=== PATIENT | female | born 1990 ===

== ENCOUNTER 2021-04-07 16:40 | Emergency (ER) | payer SELFPAY ==
[2021-04-07] MEDS ORDERED: ONDANSETRON 4 MG/2 ML INJ IV ONE (17:04)
[2021-04-07] MEDS ORDERED: MORPHINE 2 MG/1 ML INJ IV ONE (17:04)
[2021-04-07] MEDS ORDERED: SODIUM CHLORIDE 0.9% 1000 ML 1,000 ML IV ONE (17:04)
--- NOTE | 2021-04-07 17:07 | Emergency Department Report ---
ED Female HPI - General Stated complaint: MISCARRAGE/DIZZY/PELVIC PAIN Time Seen by Provider: 04/07/21 16:56 Source: patient Mode of arrival: Ambulatory Limitations: No Limitations - History of Present Illness Initial comments: 30-year-old female with no significant a past medical history presents to the hospital complaining of possible miscarriage. LMP February 22 (6 weeks and 2 days today). She has been having intermittent vaginal bleeding for the past 3 days. Bleeding is minimal at the time of complaining of moderate to severe intermittent suprapubic cramping radiating to the rectum. Patient is being followed by the clinic at [place]. She had a recent HCG test and was scheduled for follow-up blood draw and appointment today. She came to the ED because of p ain. She has not had ultrasound during this . She complains of intermittent nausea and vomiting as well. Currently taking vitamins and iron tablets. No previous abdominal surgeries reported. This is her fourth , 2 living children, history of 1 previous miscarriage - Related Data Home Medications Medication Instructions Recorded Confirmed Last Taken No Known Home Medications [No 04/07/21 04/07/21 Unknown Reported Home Medications] Allergies Allergy/AdvReac Type Severity Reaction Status Date / Time No Known Allergies Allergy Unverified 04/07/21 17:03 ED Review of Systems ROS: Stated complaint: MISCARRAGE/DIZZY/PELVIC PAIN Other details as noted in HPI Comment: All other systems reviewed and negative ED Past Medical Hx - Past Medical History Previous Medical History?: No - Medications Home Medications: Home Medications Medication Instructions Recorded Confirmed Last Taken Type No Known Home Medications [No 04/07/21 04/07/21 Unknown History Reported Home Medications] ED Physical Exam - Other Other exam information: General: No acute distress Head: Atraumatic Eyes: normal appearance ENT: Moist mucous membranes Neck: Normal appearance, no midline tenderness Chest: Clear to auscultation bilaterally CV: Regular rate and rhythm Abdomen: Soft, normal bowel sounds, suprapubic tenderness, nondistended, no rebound or guarding Back: Normal inspection Extremity: Normal inspection, full range of motion Neuro: Alert O x 3, no facial asymmetry, speech clear, no gross motor sensory deficit Psych: Appropriate behavior Skin: No rash ED Course Vital Signs 04/07/21 04/07/21 04/07/21 18:53 19:58 20:01 Temperature 99 F Pulse Rate 80 90 Respiratory 15 16 14 Rate Blood Pressure 102/51 Blood Pressure 108/54 [Left] O2 Sat by Pulse 100 100 99 Oximetry 04/07/21 04/07/21 04/07/21 20:31 21:01 21:31 Temperature Pulse Rate 75 91 H 85 Respiratory 19 17 15 Rate Blood Pressure 102/51 106/52 112/48 Blood Pressure [Left] O2 Sat by Pulse 99 92 99 Oximetry - Consultations Consultation #1: 04/07/21 19:[address] Soto MEDIA RELATIONS ASSOCIATE. Suggested patient would need repeat ultrasound and blood work in 48 hours. Recommends that she goes to her clinic and 2 days on the third for the studies. Tylenol only for pain ED Medical Decision Making - Lab Data Result diagrams: 04/07/21 17:06 Lab Results 04/07/21 04/07/21 04/07/21 Range/Units 17:06 17:06 17:06 WBC 10.2 (4.5-11.0) K/mm3 RBC 3.61 L (3.65-5.03) M/mm3 Hgb 9.3 L (10.1-14.3) gm/dl Hct 29.8 L (30.3-42.9) % MCV 83 (79-97) fl MCH 26 L (28-32) pg MCHC 31 (30-34) % RDW 16.1 H (13.2-15.2) % Plt Count 199 (140-440) K/mm3 Lymph % (Auto) 12.3 L (13.4-35.0) % [place] % (Auto) 6.0 (0.0-7.3) % Eos % (Auto) 0.3 (0.0-4.3) % Baso % (Auto) 0.3 (0.0-1.8) % Lymph # (Auto) 1.2 (1.2-5.4) K/mm3 [place] # (Auto) 0.6 (0.0-0.8) K/mm3 Eos # (Auto) 0.0 (0.0-0.4) K/mm3 Baso # (Auto) 0.0 (0.0-0.1) K/mm3 Seg Neutrophils % 81.1 H (40.0-70.0) % Seg Neutrophils # 8.3 H (1.8-7.7) K/mm3 HCG, Quant 2601 H (0-4) mIU/mL Blood Type A POSITIVE Antibody Screen Negative - Radiology Data Radiology results: report reviewed ULTRASOUND PELVIS INDICATION: vag bleeding. TECHNIQUE: Transabdominal. Transvaginal. Duplex Color Doppler used: Yes. COMPARISON: None available FINDINGS: Uterus: Present. Size: 10.3 x 4.8 x 5.8 cm. Endometrial complex: Thickened. measuring 1.2 cm. No intrauterine . Mass lesions: None. Additional findings: None. Right Ovary -- Normal. Blood flow: Normal. Cyst or mass: None. Left Ovary-- Normal. Blood flow: Normal. Cyst or mass: None. Urinary Bladder: Normal. Free Fluid: Moderate complex free fluid. Additional Findings: Possible soft tissue lesion left adnexa. IMPRESSION: 1. Thickened endometrial stripe. No intrauterine . 2. Moderate complex free fluid with possible soft tissue lesion left adnexa. Ectopic cannot be excluded by ultrasound. Recommend correlation with hCG. - Medical Decision Making Differential includes but not limited to ectopic , spontaneous miscarriage, threatened miscarriage, ovarian cyst 30-year-old female presents to the hospital with cramping abdominal pain vaginal bleeding intermittent for the past 3 days. Positive ECG of 2601 without IUP identified. Differential still includes miscarriage versus ectopic. This was discussed with on-call MEDIA RELATIONS ASSOCIATE doctor Dr. Soto who advised outpatient follow-up in 2 days for repeat laboratory testing and ultrasound to rule out ectopic. Patient provided strict instructions to return. Should take Tylenol only as needed for pain Critical Care Time: No Critical care attestation.: If time is entered above; I have spent that time in minutes in the direct care of this critically ill patient, excluding procedure time. ED Disposition Clinical Impression: Vaginal bleeding during Disposition: HOME / SELF CARE / HOMELESS Is pt being admited?: No Does the pt Need Aspirin: No Condition: Stable Instructions: Ectopic , [id number], Miscarriage Additional Instructions: Take the medication as prescribed. Follow-up with your [facility] doctor in 3 days (April 09) for repeat blood testing and ultrasound.. Return if symptoms worsen as indicated by your discharge instructions. Take the copy of the ultrasound and labs provided to your doctor for follow up Morgan el medicamento segn lo recetado. Franky un seguimiento con hardin mdico gineclogo en 3 wagner (3 de noviembre) para repetir los anlisis de angelo y la ecografa. Regrese si los sntomas empeoran segn lo indicado por sj instrucciones de tamir. Morgan la copia del ultrasonido y los laboratorios proporcionados a hardin mdico para el seguimiento Referrals: Jayna, MEDIA RELATIONS ASSOCIATE MD [Other] - 04/09/21 (Follow-up in 3 days April 09) Time of Disposition: 22:27 Print Language: SOMALI
[2021-04-07 17:32] LABS: Basophils % (Auto) 0.3 % (0.0-1.8); Eosinophils % (Auto) 0.3 % (0.0-4.3); Hematocrit 29.8 % (30.3-42.9); Hemoglobin 9.3 gm/dl (10.1-14.3); Lymphocytes # (Auto) 1.2 K/mm3 (1.2-5.4); Lymphocytes % (Auto) 12.3 % (13.4-35.0); Mean Corpuscular HGB Conc 31 % (30-34); Mean Corpuscular Volume 83 fl (79-97); Monocytes # (Auto) 0.6 K/mm3 (0.0-0.8); Platelet Count 199 K/mm3 (140-440); Red Blood Count 3.61 M/mm3 (3.65-5.03); Red Cell Distribution Width 16.1 % (13.2-15.2)
--- NOTE | 2021-04-07 18:53 | Ultrasound Report ---
ULTRASOUND PELVIS INDICATION: vag bleeding. TECHNIQUE: Transabdominal. Transvaginal. Duplex Color Doppler used: Yes. COMPARISON: None available FINDINGS: Uterus: Present. Size: 10.3 x 4.8 x 5.8 cm. Endometrial complex: Thickened. measuring 1.2 cm. No intrauterine . Mass lesions: None. Additional findings: None. Right Ovary -- Normal. Blood flow: Normal. Cyst or mass: None. Left Ovary-- Normal. Blood flow: Normal. Cyst or mass: None. Urinary Bladder: Normal. Free Fluid: Moderate complex free fluid. Additional Findings: Possible soft tissue lesion left adnexa. IMPRESSION: 1. Thickened endometrial stripe. No intrauterine . 2. Moderate complex free fluid with possible soft tissue lesion left adnexa. Ectopic cannot be excluded by ultrasound. Recommend correlation with hCG. Signer Name: Ashutosh Lizarraga MD Signed: 04/07/2021 6:49 PM Workstation Name: [id number]
[2021-04-07] MEDS ORDERED: ACETAMINOPHEN 325 MG TAB PO ONE ×2 (19:53→23:10)
[2021-04-07 21:41] VITALS: BP 112/48
== END 2021-04-07 23:27 | disposition home or self-care (01) ==
LOC: ED 16:40
DX: O20.9 Hemorrhage in early pregnancy, unspecified (principal); O26.891 Other specified pregnancy related conditions, first trimester; R10.9 Unspecified abdominal pain; Z3A.01 Less than 8 weeks gestation of pregnancy
CPT/HCPCS: 36415; 76801; 76817; 84702; 85025; 86850; 86900; 86901; 96361; 96374; 96375; 99284; J2270; J2405; J7030

== ENCOUNTER 2021-04-10 16:04 | Emergency (ER) | payer SELFPAY ==
[2021-04-10 16:27] VITALS: BP 133/50
--- NOTE | 2021-04-10 17:05 | Emergency Department Report ---
ED General Adult HPI - General Chief complaint: Vaginal Bleeding Stated complaint: REFERRAL ECTOPIC Time Seen by Provider: 04/10/21 16:46 Source: patient Mode of arrival: Ambulatory Limitations: No Limitations - History of Present Illness Initial comments: 30-year-old female patient presents with complaints of possible ectopic . Patient was seen here in the ED a few days ago for vaginal bleeding in . She states she has had mild cramping. At that visit, patient was found to have possible miscarriage versus ectopic on ultrasound with a left adnexal complex fluid. Patient followed up with her [facility] today and was referred here to the ED to rule out ectopic again. She states she continues to have mild vaginal spotting bleeding and mild cramping, but no pain at current. She is G4, no other prior medical history per patient. Severity scale (0 -10): 0 - Related Data Home Medications Medication Instructions Recorded Confirmed Last Taken No Known Home Medications [No 04/07/21 04/07/21 Unknown Reported Home Medications] Allergies Allergy/AdvReac Type Severity Reaction Status Date / Time No Known Allergies Allergy Unverified 04/07/21 17:03 ED Review of Systems ROS: Stated complaint: REFERRAL ECTOPIC Other details as noted in HPI Constitutional: denies: chills, fever, malaise ENT: denies: throat pain Respiratory: denies: cough, shortness of breath Cardiovascular: denies: chest pain Gastrointestinal: as per HPI. denies: nausea, vomiting Musculoskeletal: denies: back pain, joint swelling Hematological/Lymphatic: denies: easy bleeding ED Past Medical Hx - Past Medical History Additional medical history: denies - Surgical History Additional Surgical History: denies - Social History Smoking Status: Never Smoker Substance Use Type: None - Medications Home Medications: Home Medications Medication Instructions Recorded Confirmed Last Taken Type No Known Home Medications [No 04/07/21 04/07/21 Unknown History Reported Home Medications] ED Physical Exam - General Limitations: No Limitations General appearance: alert, in no apparent distress - Head Head exam: Present: atraumatic, normocephalic - Eye Eye exam: Present: normal appearance. Absent: scleral icterus - Respiratory Respiratory exam: Present: normal lung sounds bilaterally. Absent: respiratory distress - Cardiovascular Cardiovascular Exam: Present: regular rate, normal rhythm - GI/Abdominal GI/Abdominal exam: Present: soft, normal bowel sounds. Absent: distended, tenderness, guarding, rebound, rigid - Neurological Exam Neurological exam: Present: alert, oriented X3, normal gait - Psychiatric Psychiatric exam: Present: normal affect, normal mood - Skin Skin exam: Present: warm, dry, intact, normal color. Absent: rash ED Course Vital Signs 04/10/21 04/10/21 16:24 20:11 Temperature 98 F Pulse Rate 83 Respiratory 18 Rate Blood Pressure 133/50 [Right] O2 Sat by Pulse 100 98 Oximetry ED Medical Decision Making - Lab Data Result diagrams: 04/10/21 16:33 04/10/21 16:33 Lab Results 04/10/21 04/10/21 04/10/21 Range/Units 16:33 16:33 16:33 WBC 5.7 (4.5-11.0) K/mm3 RBC 3.17 L (3.65-5.03) M/mm3 Hgb 8.2 L (10.1-14.3) gm/dl Hct 25.5 L (30.3-42.9) % MCV 81 (79-97) fl MCH 26 L (28-32) pg MCHC 32 (30-34) % RDW 16.0 H (13.2-15.2) % Plt Count 187 (140-440) K/mm3 Lymph % (Auto) 25.7 (13.4-35.0) % [place] % (Auto) 7.8 H (0.0-7.3) % Eos % (Auto) 1.0 (0.0-4.3) % Baso % (Auto) 0.5 (0.0-1.8) % Lymph # (Auto) 1.5 (1.2-5.4) K/mm3 [place] # (Auto) 0.4 (0.0-0.8) K/mm3 Eos # (Auto) 0.1 (0.0-0.4) K/mm3 Baso # (Auto) 0.0 (0.0-0.1) K/mm3 Seg Neutrophils % 65.0 (40.0-70.0) % Seg Neutrophils # 3.7 (1.8-7.7) K/mm3 Sodium 142 (137-145) mmol/L Potassium 3.7 (3.6-5.0) mmol/L Chloride 104.7 (98-107) mmol/L Carbon Dioxide 25 (22-30) mmol/L Anion Gap 16 mmol/L BUN 8 (7-17) mg/dL Creatinine 0.4 L (0.6-1.2) mg/dL Estimated GFR > 60 ml/min BUN/Creatinine Ratio 20 % Glucose 109 H (65-100) mg/dL Calcium 9.1 (8.4-10.2) mg/dL Total Bilirubin 0.30 (0.1-1.2) mg/dL AST 13 (5-40) units/L ALT 6 L (7-56) units/L Alkaline Phosphatase 47 (35-129) units/L Total Protein 7.5 (6.3-8.2) g/dL Albumin 4.3 (3.9-5) g/dL Albumin/Globulin Ratio 1.3 % HCG, Quant 452.9 H (0-4) mIU/mL Urine Color (Yellow) Urine Turbidity (Clear) Urine pH (5.0-7.0) Ur Specific [place] (1.003-1.030) Urine Protein (Negative) mg/dL Urine Glucose (UA) (Negative) mg/dL Urine Ketones (Negative) mg/dL Urine Blood (Negative) Urine Nitrite (Negative) Urine Bilirubin (Negative) Urine Urobilinogen (<2.0) mg/dL Ur Leukocyte Esterase (Negative) Urine WBC (Auto) (0.0-6.0) /HPF Urine RBC (Auto) (0.0-6.0) /HPF U Epithel Cells (Auto) (0-13.0) /HPF Urine Mucus /HPF 04/10/21 Range/Units 17:10 WBC (4.5-11.0) K/mm3 RBC (3.65-5.03) M/mm3 Hgb (10.1-14.3) gm/dl Hct (30.3-42.9) % MCV (79-97) fl MCH (28-32) pg MCHC (30-34) % RDW (13.2-15.2) % Plt Count (140-440) K/mm3 Lymph % (Auto) (13.4-35.0) % [place] % (Auto) (0.0-7.3) % Eos % (Auto) (0.0-4.3) % Baso % (Auto) (0.0-1.8) % Lymph # (Auto) (1.2-5.4) K/mm3 [place] # (Auto) (0.0-0.8) K/mm3 Eos # (Auto) (0.0-0.4) K/mm3 Baso # (Auto) (0.0-0.1) K/mm3 Seg Neutrophils % (40.0-70.0) % Seg Neutrophils # (1.8-7.7) K/mm3 Sodium (137-145) mmol/L Potassium (3.6-5.0) mmol/L Chloride (98-107) mmol/L Carbon Dioxide (22-30) mmol/L Anion Gap mmol/L BUN (7-17) mg/dL Creatinine (0.6-1.2) mg/dL Estimated GFR ml/min BUN/Creatinine Ratio % Glucose (65-100) mg/dL Calcium (8.4-10.2) mg/dL Total Bilirubin (0.1-1.2) mg/dL AST (5-40) units/L ALT (7-56) units/L Alkaline Phosphatase (35-129) units/L Total Protein (6.3-8.2) g/dL Albumin (3.9-5) g/dL Albumin/Globulin Ratio % HCG, Quant (0-4) mIU/mL Urine Color Yellow (Yellow) Urine Turbidity Clear (Clear) Urine pH 6.0 (5.0-7.0) Ur Specific [place] 1.016 (1.003-1.030) Urine Protein <15 mg/dl (Negative) mg/dL Urine Glucose (UA) Neg (Negative) mg/dL Urine Ketones Neg (Negative) mg/dL Urine Blood Lg (Negative) Urine Nitrite Neg (Negative) Urine Bilirubin Neg (Negative) Urine Urobilinogen < 2.0 (<2.0) mg/dL Ur Leukocyte Esterase Neg (Negative) Urine WBC (Auto) 3.0 (0.0-6.0) /HPF Urine RBC (Auto) 1.0 (0.0-6.0) /HPF U Epithel Cells (Auto) 2.0 (0-13.0) /HPF Urine Mucus Few /HPF - Radiology Data Radiology results: report reviewed ULTRASOUND OBSTETRIC INDICATION / CLINICAL INFORMATION: possible ectopic. Clinical Gestational Age (GA) in weeks, days: 11, 1 TECHNIQUE: Transvaginal. COMPARISON: 04/07/2021 FINDINGS: GESTATIONAL SAC: Not seen YOLK SAC: Not seen EMBRYO/FETUS: Not seen ADNEXA: Within the left adnexa there is an echogenic area with central area of decreased echogenicity and what appears to be a yolk sac. This is highly suspicious for ectopic . FREE FLUID: There is small amount of echogenic free fluid within the pelvis. This does not appear significant change compared to 2 days prior. ADDITIONAL FINDINGS: None. IMPRESSION: 1. Findings very concerning for left adnexal ectopic . No evidence of intrauterine gestation. - Medical Decision Making 30-year-old female patient presents with complaints of possible ectopic . Patient was seen here in the ED a few days ago for vaginal bleeding in . She states she has had mild cramping. At that visit, patient was found to have possible miscarriage versus ectopic on ultrasound with a left adnexal complex fluid. Patient followed up with her [facility] today and was referred here to the ED to rule out ectopic again. She states she continues to have mild vaginal spotting bleeding and mild cramping, but no pain at current. She is G4, no other prior medical history per patient. Ultrasound shows likely left ectopic . Ultrasound results and labs reviewed with Dr. Gunter, GM V[facility]. Dr. Gunter recommends methotrexate IM. Patient to return to the ED on Wednesday for repeat beta hCG levels. She is to have a second repeat of her hCG levels on 04/16/2021 with her [facility] or with the CD. Dr. Gunter states that the beta-hCG amount measured on 04/16/2021 should decrease by 15% from the measurement on 04/13/2021. Discussed findings in detail with patient, plan of care, and signs and symptoms that should prompt immediate return to the ED. Patient verbalized understanding. She is well-appearing and denies any pain at this time. Patient is stable for discharge home. Patient also instructed to discontinue vitamins per instructions by Dr. Gunter Critical care attestation.: If time is entered above; I have spent that time in minutes in the direct care of this critically ill patient, excluding procedure time. ED Disposition Clinical Impression: Ectopic Disposition: 01 HOME / SELF CARE / HOMELESS Is pt being admited?: No Condition: Stable Instructions: Methotrexate Treatment for an Ectopic , Care After, Ectopic Additional Instructions: Please return to the emergency department on 04/13/2021 for repeat of your hormone levels. You will need to again follow-up with your OB/G YN on 04/16/2021 for another repeat of your hormone levels. If you are unable to follow-up with your [facility] on 04/16/2021, you may return to the emergency department for repeat testing. If you develop any new or worsening symptoms seek immediate emergency treatment. Referrals: PRIMARY CARE, [Primary Care Provider] - 3-5 Days
[2021-04-10 17:20] LABS: Basophils % (Auto) 0.5 % (0.0-1.8); Eosinophils # (Auto) 0.1 K/mm3 (0.0-0.4); Hematocrit 25.5 % (30.3-42.9); Hemoglobin 8.2 gm/dl (10.1-14.3); Lymphocytes # (Auto) 1.5 K/mm3 (1.2-5.4); Lymphocytes % (Auto) 25.7 % (13.4-35.0); Mean Corpuscular HGB Conc 32 % (30-34); Mean Corpuscular Volume 81 fl (79-97); Monocytes # (Auto) 0.4 K/mm3 (0.0-0.8); Monocytes % (Auto) 7.8 % (0.0-7.3); Platelet Count 187 K/mm3 (140-440); Red Blood Count 3.17 M/mm3 (3.65-5.03)
[2021-04-10 17:26] LABS: Bilirubin,Urine NEG (Negative); Blood,Urine LG (Negative); Color,Urine Yellow (Yellow); Mucus,Urine FEW /HPF; Protein,Urine <15 mg/dL mg/dL (Negative); Urobilinogen,Urine < 2.0 mg/dL (<2.0)
[2021-04-10 17:30] LABS: Alanine Aminotransferase 6 units/L (7-56); Albumin 4.3 g/dL (3.9-5); Blood Urea Nitrogen 8 mg/dL (7-17); Calcium 9.1 mg/dL (8.4-10.2); Hemolysis Index 3
[2021-04-10 17:32] LABS: BUN/Creatinine Ratio 20
--- NOTE | 2021-04-10 18:25 | Ultrasound Report ---
ULTRASOUND OBSTETRIC INDICATION / CLINICAL INFORMATION: possible ectopic. Clinical Gestational Age (GA) in weeks, days: 11, 1 TECHNIQUE: Transvaginal. COMPARISON: 04/07/2021 FINDINGS: GESTATIONAL SAC: Not seen YOLK SAC: Not seen EMBRYO/FETUS: Not seen ADNEXA: Within the left adnexa there is an echogenic area with central area of decreased echogenicity and what appears to be a yolk sac. This is highly suspicious for ectopic . FREE FLUID: There is small amount of echogenic free fluid within the pelvis. This does not appear sig nificant change compared to 2 days prior. ADDITIONAL FINDINGS: None. IMPRESSION: 1. Findings very concerning for left adnexal ectopic . No evidence of intrauterine gestation . CRITICAL RESULT Time of Discovery (CERTIFIED NOVELL ENGINEER/CDT): 5:15 PM Time of Communication (CERTIFIED NOVELL ENGINEER/CDT): 5:20 PM Licensed Practitioner Receiving Report: Dr. Pratt Read-Back Performed: Yes. Signer Name: Tab Meza DO Signed: 04/10/2021 6:20 PM Workstation Name: [id number]
--- NOTE | 2021-04-10 18:25 | Ultrasound Report ---
ULTRASOUND OBSTETRIC INDICATION / CLINICAL INFORMATION: possible ectopic. Clinical Gestational Age (GA) in weeks, days: 11, 1 TECHNIQUE: Transvaginal. COMPARISON: 04/07/2021 FINDINGS: GESTATIONAL SAC: Not seen YOLK SAC: Not seen EMBRYO/FETUS: Not seen ADNEXA: Within the left adnexa there is an echogenic area with central area of decreased echogenicity and what appears to be a yolk sac. This is highly suspicious for ectopic . FREE FLUID: There is small amount of echogenic free fluid within the pelvis. This does not appear sig nificant change compared to 2 days prior. ADDITIONAL FINDINGS: None. IMPRESSION: 1. Findings very concerning for left adnexal ectopic . No evidence of intrauterine gestation . CRITICAL RESULT Time of Discovery (SITE TECHNICIAN/CDT): 5:15 PM Time of Communication (SITE TECHNICIAN/CDT): 5:20 PM Licensed Practitioner Receiving Report: Dr. Pratt Read-Back Performed: Yes. Signer Name: Tab Meza DO Signed: 04/10/2021 6:20 PM Workstation Name: [id number]
== END 2021-04-10 20:29 | disposition home or self-care (01) ==
LOC: ED 16:04
DX: O00.90 Unspecified ectopic pregnancy without intrauterine pregnancy (principal); Z3A.00 Weeks of gestation of pregnancy not specified
CPT/HCPCS: 36415; 76801; 76817; 80053; 81001; 84702; 85025; 96372; 99284; J9260